=== PATIENT | female | born 1975 | race Caucasian/White ===

== ENCOUNTER 2023-12-09 09:20 | Emergency (ER) | payer OTHER, SELFPAY ==
--- NOTE | ~2023-12-09 | XR_ITS ---
EXAMINATION: XR knee LT min 4V DATE: 12/09/2023 10:09 INDICATION: One half weeks of left knee pain TECHNIQUE: Anteroposterior, 2 oblique, sunrise and crosstable lateral views of the left knee were obt ained COMPARISON: None. FINDINGS: Alignment is normal. No fracture. Joint spaces appear normal on nonweightbearing imaging. No joint e ffusion/layering lipohemarthrosis. Subcutaneous varicosities at the medial aspect of the left knee. S oft tissues are otherwise unremarkable. IMPRESSION: 1. No left knee joint effusion or acute osseous abnormality. Reviewed, dictated and finalized at location B.
[2023-12-09 09:33] VITALS: BP 136/91; PULSE 74; RESP 16; TEMP 36.5; O2SAT 100
--- NOTE | 2023-12-09 09:54 | ED.LOWEXIN ---
HPI - Extremity Injury (Lower) General Chief Complaint: Extremity Injury, Lower Stated Complaint: Injured Left Knee Time Seen by Provider: 12/09/23 09:44 Source: patient Mode of arrival: ambulatory Limitations: no limitations History of Present Illness HPI Narrative: 48 y/o female presented for c/o left knee pain x1 week. Pain is to the outer aspect, and says the calf and hamstring feel tight. Denies known injury but states it started after playing pickleball the night before. Also reports she has taken up running for about 3 weeks prior. Taking Advil, which helps. Pain is worse in the morning rating 6/10, worse when straightening the leg even in bed. Endorses numbness sensation when bending down and the knee feels like it could give out when walking. Denies swelling, redness, bruising, warmth or deformity. Related Data Allergies Allergy/AdvReac Type Severity Reaction Status Date / Time shellfish derived Allergy Unknown Unknown Verified 12/09/23 09:31 sulfamethoxazole AdvReac Mild Fatigued Verified 12/09/23 09:31 [From Bactrim] trimethoprim [From Bactrim] AdvReac Fatigued Verified 12/09/23 09:31 Review of Systems Review of Systems: CONSTITUTIONAL: Denies body aches, fever, chills CARDIOVASCULAR: Denies chest pain, palpitations, or edema. RESPIRATORY: Denies cough or dyspnea. SKIN: Denies rash, itching, or wounds. MUSCULOSKELETAL: Reports left knee pain Denies back pain NEUROLOGIC: Denies headache, numbness, tingling, or weakness. All systems reviewed & are unremarkable except as noted in HPI and below PMFSH Family History Family History Father No problems noted. Grandparent Lymphoma Grandparent Carcinoma of colon Grandparent Carcinoma of colon Mother Pituitary tumor Social History Social History Smoking status: Never smoker Alcohol intake: current Alcohol use details: Pt drinks rarely. Lack of Transportation: No Lack of Food: Never True Current Housing: I Have Housing Concerned About Future Housing: No Difficulty Paying Gas/Electric Bills: No Difficulty Paying for Meds: No Currently Unemployed: No Education: Bachelor's Degree Difficulty w/ Childcare or Family Care: No Comments At time of signature, I have reviewed and agree with nursing past medical, surgical, social and family history unless otherwise noted. Please see nursing chart for further information. There is no relevant family history pertinent to the presenting complaint Exam Narrative: GENERAL: Well-appearing CHEST: Speaks in full sentences. No respiratory distress. HEART: Regular rate and rhythm. Normal and equal peripheral pulses. EXTREMITIES: Patient is able to bear weight and ambulate with pain reported to the left knee. No bruising, swelling, erythema or warmth to the knee. The knee is without obvious asymmetry or deformity when compared to the other knee. Patient is able to tolerate full flexion, extension, internal and external rotation; reporting pain with full extension to the lateral aspect of the knee. Tender with palpation to lateral aspect of left knee. No swelling to LLE, tenderness to palpation of the patella, effusion or ballottement, no tenderness over the infrapatellar tendon or over the proximal fibular head, no quadriceps tenderness. Distal motor and neurovascular status intact. Negative Telma's sign. SKIN: Warm, dry, no wounds. Capillary refill less than 3 seconds. NEURO: Alert and oriented x3. PSYCH: Normal mood and affect Course Course Emergency Course: Patient is aware of diagnosis, understands and agrees to treatment plan. Anticipatory guidance given. Patient agrees to follow-up as directed and is aware of reasons to seek care at the emergency department. Portions of this record may have been created with voice recognition software Level of Care: Express Care Vi
== END 2023-12-09 10:25 | disposition home or self-care (01) ==
PROVIDERS: Emergency Provider Nurse Practitioner Family; PCP Internal Medicine
DX: M25.562 Pain in left knee (principal)
CPT/HCPCS: 73564; 99213; G0463

== ENCOUNTER 2024-12-18 08:21 | Outpatient (CLI) | payer OTHER, SELFPAY ==
--- OUTSIDE RECORDS SUMMARY | 2024-12-18 08:29 | XMS_ITS | Clinical Summary ---
Author Organization [facility] [address] [place] [address] Phone Care Team Providers Care Coal Bagger Name Role Phone Petr Calderon MD Primary Care Provider [phone] Medications metroNIDAZOLE (METROGEL) 0.75 % Gel Appy topically to clean face two times daily. 45 Gram 12 05/13/2024 1:21 PM COUNTER PERSON Active Encounters Date Type Department Care Team Description 11/27/2024 External Device Data [facility] ABSTRACTION Provider, Abstract 11/13/2024 External Device Data [facility] ABSTRACTION Provider, Abstract 11/01/2024 External Device Data [facility] ABSTRACTION Provider, Abstract 10/31/2024 External Device Data [facility] ABSTRACTION Provider, Abstract 10/30/2024 External Device Data [facility] ABSTRACTION Provider, Abstract 09/25/2024 External Device Data [facility] ABSTRACTION Provider, Abstract from Last 3 Months Social History Tobacco Use Types Packs/Day Years Used Date Smoking Tobacco: Never Assessed Comments Unknown Sex and Gender Information Value Date Recorded Sex Assigned at Not on file Legal Sex Female 5:00 AM COUNTER PERSON Gender Identity Not on file Sexual Orientation Not on file Plan of Treatment Health Maintenance Due Date Last Done Comments DTAP/TDAP/TD VACCINES (1 - Tdap) 1995 HEPATITIS B VACCINES (1 of 3 - 19+ 3-dose series) 11/1995 HPV/Cotest (21-29) 1997 CERVICAL CANCER SCREENING 2006 HPV/Cotest (30-65) 2006 PAP SMEAR 2006 BREAST CANCER SCREENING 2016 COLORECTAL SCREENING 2021 Colorectal Cancer Screening 2021 FIT-DNA Q 3 years 2021 FIT/FOBT Q 1 year 2021 Flex Sig/CT Colonography Q 5 years 2021 INFLUENZA VACCINE (#1) 2025 Care Teams Coal Bagger Relationship Specialty Start Date End Date Petr Calderon MD [address] [place] [id number] PCP - General 01/11/07
--- OUTSIDE RECORDS SUMMARY | 2024-12-18 08:29 | XMS_ITS | Encounter Summary ---
Author Organization [facility] Address 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
== END 2024-12-18 08:22 | disposition home or self-care (01) ==
LOC: ANHGOSHLAB 08:25
PROVIDERS: PCP Internal Medicine; Visit Provider Nurse Practitioner
DX: F41.9 Anxiety disorder, unspecified (principal); E55.9 Vitamin D deficiency, unspecified
CPT/HCPCS: 36415